=== PATIENT | male | born 1975 | race Caucasian/White ===

== ENCOUNTER → 2022-03-20 | Outpatient (CLI) | payer BC ==
--- NOTE | 2022-03-20 22:23 | XR ---
EXAMINATION TYPE: XR foot complete bilateral DATE OF EXAM: 03/20/2022 CLINICAL HISTORY: Bilateral foot pain. TECHNIQUE: Frontal, lateral, and oblique images of the bilateral the are obtained. COMPARISON: None FINDINGS: There is no acute fracture/dislocation evident in either foot. Hallux valgus positioning f irst interphalangeal joint bilaterally is present. The Dale's toe is seen bilaterally. There is dejuan us positioning and flexion of the distal fourth and fifth toes bilaterally. The overlying soft tissu e appears unremarkable bilaterally. IMPRESSION: As above.
--- NOTE | 2022-03-20 22:26 | XR ---
EXAMINATION TYPE: XR hand complete bilateral, XR wrist complete BILATERAL DATE OF EXAM: 03/20/2022 CLINICAL HISTORY: Bilateral pain. TECHNIQUE: Frontal, lateral and oblique images of the bilateral wrists and hands are obtained. Addit ional fourth scaphoid view of the bilateral wrists are acquired. COMPARISON: None. FINDINGS: There is no acute fracture or dislocation in either wrist. The carpal joint spaces are deb ntained bilaterally. Overlying Soft tissue is unremarkable bilaterally. There is no acute fracture/dislocation evident in either hand. The joint spaces in the bilateral hand s appear within normal limits. The overlying soft tissue appears unremarkable bilaterally. IMPRESSION: As above.
== END | disposition home or self-care (01) ==
LOC: RADXRMAIN 16:12
PROVIDERS: ATTEND Internal Medicine Rheumatology
DX: M15.9 Polyosteoarthritis, unspecified (principal); M05.8A Other rheumatoid arthritis with rheumatoid factor of other specified site; M79.671 Pain in right foot; M79.672 Pain in left foot